=== PATIENT | female | born 1975 | race Caucasian/White ===

== ENCOUNTER → 2017-07-11 | Outpatient (CLI) | payer BC ==
--- NOTE | 2017-07-12 08:35 | MG ---
HISTORY: SCREENING Comparison: 04/11/2016, 01/14/2015, 10/03/2013, 08/11/2011 FINDINGS: CC and MLO projections of the right and left breast were obtained. Heterogeneously dense fibroglandu lar tissue is present. There is a 2.9 cm nodule in the inferior/lateral left breast that was present on previous exams that appears more conspicuous on today's MLO view than on prior exams. Further luis e acterization with ultrasound is recommended. Findings could represent a cyst or fibroadenoma. No sign ificant architectural distortion, mass or clustered microcalcifications can be observed to suggest ma lignancy. No skin thickening or nipple retraction is appreciated. No pathological lymphadenopathy c an be identified. IMPRESSION: Heterogeneously dense breasts with a 2.9 cm nodule in the inferior/lateral left breast s een on previous exams however appears more conspicuous on today's MLO view. The findings may represen t a fibroadenoma or cyst. Left breast ultrasound is recommended for further characterization. ACR CATEGORY 0: Assessment incomplete; additional imaging is needed. Diagnostic CAD was utilized and reviewed. * 0 (ZERO) - ASSESSMENT INCOMPLETE; ADDITIONAL IMAGING IS NEEDED. * 1/1 (ONE) - NEGATIVE. * 2/II (TWO) - BENIGN FINDINGS. * 3/III (THREE) - PROBABLY BENIGN FINDING; SHORT INTERVAL FOLLOW-UP SUGGESTED. * 4/IV (FOUR) - SUSPICIOUS ABNORMALITY; BIOPSY SHOULD BE CONSIDERED. * 5/V - HIGHLY SUSPICIOUS OF MALIGNANCY; BIOPSY SHOULD BE PERFORMED. A NEGATIVE X-RAY REPORT SHOULD NOT DELAY BIOPSY IF A DOMINANT OR CLINICALLY SUSPICIOUS MASS IS PRESENT; 4 TO 8 PERCENT OF CANCERS ARE NOT IDENTIFIED BY X-RAY. A NEGA TIVE REPORT MAY REINFORCE THE CLINICAL IMPRESSION. ADENOSIS AND DENSE BREASTS MAY OBSCURE AN UNDERLY ING NEOPLASM. Reported By:
== END ==
LOC: RAD 15:48
PROVIDERS: ATTEND Specialist
DX: Z12.31 Encounter for screening mammogram for malignant neoplasm of breast (principal)
CPT/HCPCS: 77067

== ENCOUNTER → 2017-07-13 | Outpatient (CLI) | payer BC ==
--- NOTE | 2017-07-13 16:26 | MG ---
HISTORY: Left focal asymmetry Diagnostic left mammography and targeted ultrasound. Comparison: Multiple priors dating to 08/11/2011 FINDINGS: Full field ML and spot compression CC and MLO projections of the left breast were obtained. Heteroge neously dense fibroglandular tissue is seen to be present. The ovoid focal asymmetry is unchanged fr om the most recent exam. No skin thickening or nipple retraction is appreciated. No pathological l ymphadenopathy can be identified. Targeted ultrasound: At 6 o'clock 4 cm from the nipple there is a parallel oval nodule measuring 2.5 x 1.1 cm, without evidence for significant shadowing. This lesion is predominantly hypoechoic periphe rally with central echogenicity, suggestive for intralesional fat. Some internal Doppler flow was dem onstrated. IMPRESSION: 2.5 cm nodule corresponding to the mammographic abnormality is indeterminate, and could possibly represent a fibroadenoma, fibrocystic tissue, or an enlarged lymph node. However, biopsy ghanshyam uld be considered given apparent enlargement on mammogram. ACR CATEGORY: 4 - suspicious abnormality; biopsy should be considered Diagnostic CAD was utilized and reviewed. * 0 (ZERO) - ASSESSMENT INCOMPLETE; ADDITIONAL IMAGING IS NEEDED. * 1/ (ONE) - NEGATIVE. * 2/II (TWO) - BENIGN FINDINGS. * 3/III (THREE) - PROBABLY BENIGN FINDING; SHORT INTERVAL FOLLOW-UP SUGGESTED. * 4/IV (FOUR) - SUSPICIOUS ABNORMALITY; BIOPSY SHOULD BE CONSIDERED. * 5/V - HIGHLY SUSPICIOUS OF MALIGNANCY; BIOPSY SHOULD BE PERFORMED. A NEGATIVE X-RAY REPORT SHOULD NOT DELAY BIOPSY IF A DOMINANT OR CLINICALLY SUSPICIOUS MASS IS PRESENT; 4 TO 8 PERCENT OF CANCERS ARE NOT IDENTIFIED BY X-RAY. A NEGA TIVE REPORT MAY REINFORCE THE CLINICAL IMPRESSION. ADENOSIS AND DENSE BREASTS MAY OBSCURE AN UNDERLY ING NEOPLASM. Reported By:
--- NOTE | 2017-07-13 16:30 | US ---
HISTORY: Left focal asymmetry Diagnostic left mammography and targeted ultrasound. Comparison: Multiple priors dating to 08/11/2011 FINDINGS: Full field ML and spot compression CC and MLO projections of the left breast were obtained. Heterogen eously dense fibroglandular tissue is seen to be present. The ovoid focal asymmetry is unchanged from the most recent exam. No skin thickening or nipple retraction is appreciated. No pathological lympha denopathy can be identified. Targeted ultrasound: At 6 o'clock 4 cm from the nipple there is a parallel oval nodule measuring 2.5 x 1.1 cm, without evidence for significant shadowing. This lesion is predominantly hypoechoic periphe rally with central echogenicity, suggestive for intralesional fat. Some internal Doppler flow was dem onstrated. IMPRESSION: 2.5 cm nodule corresponding to the mammographic abnormality is indeterminate, and could possibly represent a fibroadenoma, fibrocystic tissue, or an enlarged lymph node. However, biopsy should be considered given apparent enlargement on mammogram. ACR CATEGORY: 4 - suspicious abnormality; biopsy should be considered Diagnostic CAD was utilized and reviewed. * 0 (ZERO) - ASSESSMENT INCOMPLETE; ADDITIONAL IMAGING IS NEEDED. * 1/1 (ONE) - NEGATIVE. * 2/II (TWO) - BENIGN FINDINGS. * 3/III (THREE) - PROBABLY BENIGN FINDING; SHORT INTERVAL FOLLOW-UP SUGGESTED. * 4/IV (FOUR) - SUSPICIOUS ABNORMALITY; BIOPSY SHOULD BE CONSIDERED. * 5/V - HIGHLY SUSPICIOUS OF MALIGNANCY; BIOPSY SHOULD BE PERFORMED. A NEGATIVE X-RAY REPORT SHOULD NOT DELAY BIOPSY IF A DOMINANT OR CLINICALLY SUSPICIOUS MAS S IS PRESENT; 4 TO 8 PERCENT OF CANCERS ARE NOT IDENTIFIED BY X-RAY. A NEGATIVE REPORT MAY REINFORCE THE CLINICAL IMPRESSION. ADENOSIS AND DENSE BREASTS MAY OBSCURE AN UNDERLYING NEOPLASM. Reported By:
== END ==
LOC: RAD 12:46
PROVIDERS: ATTEND Specialist
DX: R92.8 Other abnormal and inconclusive findings on diagnostic imaging of breast (principal)
CPT/HCPCS: 76642; 77065

== ENCOUNTER → 2017-07-26 | Outpatient (CLI) | payer BC ==
--- NOTE | 2017-07-27 12:45 | US ---
HISTORY: Left breast nodule Study: Ultrasound-guided breast biopsy Comparison: 07/11/2017, 07/13/2017 Technique: Multiple grayscale images of the left breast were obtained. Findings: Again noted within the left breast is a focal lesion previously noted and amenable to ultrasound-guid ed biopsy. Multiple images demonstrating a trocar device transversing the lesion are observed. Procedure: After the risks benefits and alternatives to the procedure were explained to the patient questions we re answered and she agreed to proceed. Under direct ultrasound guidance the skin entry position was selected and marked. A time-out was taken. 1% lidocaine without epinephrine was utilized to anesthe tize the skin and underlying soft tissues. Under direct ultrasound guidance the 13 gauge trocar valerie ce was advanced to the lesion without difficulty. 5 separate 14 gauge core samples were obtained wit hout difficulty. Under direct ultrasound guidance a clip was placed in the region of the lesion for correlation and followup. Diagnostic mammogram: ML and CC projections of the left breast were obtained demonstrating a breast clip to be in the regio n of ultrasound-guided biopsy. IMPRESSION: Successful ultrasound-guided breast biopsy. Reported By:
== END | disposition home or self-care (01) ==
LOC: RAD 09:41
PROVIDERS: ATTEND Specialist
DX: N63.24 Unspecified lump in the left breast, lower inner quadrant (principal); N63.23 Unspecified lump in the left breast, lower outer quadrant
CPT/HCPCS: 19083